=== PATIENT | male | born 1995 | race Hispanic/Latino ===

== ENCOUNTER 2018-12-12 18:52 | Emergency (ER) | payer OTHER ==
[~2018-12-12] VITALS: Ht 175.3 cm; Wt 104.5 kg
[2018-12-12] MEDS ORDERED: BENA25CA4 PO (21:36)
[2018-12-12] MEDS ORDERED: PRED10TA2 PO (21:36)
[2018-12-12 21:41] VITALS: BP 116/85
== END 2018-12-12 21:42 | disposition home or self-care (01) ==
LOC: M ED 18:52
DX: R21 Rash and other nonspecific skin eruption (principal); T50.B15A Adverse effect of smallpox vaccines, initial encounter; X58.XXXA Exposure to other specified factors, initial encounter; Y92.89 Other specified places as the place of occurrence of the external cause; F17.210 Nicotine dependence, cigarettes, uncomplicated